=== PATIENT | male | born 1995 ===

== ENCOUNTER 2018-01-27 22:34 | Emergency (ER) | payer MEDICAID ==
[2018-01-27 22:42] VITALS: RESP 18; TEMP 98.3
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
[2018-01-28 02:20] VITALS: BP 110/61; PULSE 63; O2SAT 98
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
== END 2018-01-28 02:30 | disposition home or self-care (01) ==
LOC: H.ER 22:34
DX: S99.912A Unspecified injury of left ankle, initial encounter (principal); Y93.55 Activity, bike riding; Y92.410 Unspecified street and highway as the place of occurrence of the external cause

== ENCOUNTER 2018-02-05 15:01 | Emergency (ER) | payer MEDICAID ==
[2018-02-05 15:27] VITALS: BP 105/67; PULSE 65; RESP 18; TEMP 98.1; O2SAT 99
--- NOTE | 2018-02-05 15:36 | ED PDOC ---
HPI: Trauma/Fall - HPI Time Seen by Provider: 02/05/18 15:28 Chief Complaint (Nursing): Trauma Chief Complaint (Provider): Left wrist injury History Per: Patient, Project Structural Engineer (JOSE Paiz at bedside for kyrgyz translation) Onset/Duration Of Symptoms: Days (x2) Location Of Injury: Left: Wrist Additional Complaint(s): 23 year old right hand dominant male presents to the ED with left wrist pain since yesterday. Patient reports he fell down stairs yesterday and used his left hand to break the fall causing injury to the left wrist. Patient denies taking any medications for pain. No medical attention sought yesterday at time of injury. PMD: Phani Paredes Past Medical History Reviewed: Historical Data, Nursing Documentation, Vital Signs Vital Signs: Last Vital Signs Temp 98.1 F 02/05/18 15:23 Pulse 65 02/05/18 15:23 Resp 18 02/05/18 15:23 BP 105/67 02/05/18 15:23 Pulse Ox 99 02/05/18 15:39 - Medical History PMH: No Chronic Diseases - Surgical History Surgical History: No Surg Hx Other surgeries: Peritonitis - Family History Family History: States: No Known Family Hx - Living Arrangements Living Arrangements: With Family - Social History Current smoker - smoking cessation education provided: No Alcohol: None Drugs: Denies - Home Medications Home Medications: Ambulatory Orders Medication Instructions Recorded Ibuprofen [Motrin Tab] 600 mg PO Q6 #30 tab 01/28/18 Ibuprofen [Motrin] 600 mg PO Q6 PRN #15 tab 02/05/18 - Allergies Allergies/Adverse Reactions: Allergies Allergy/AdvReac Type Severity Reaction Status Date / Time No Known Allergies Allergy Verified 02/05/18 15:23 Review of Systems ROS Statement: Except As Marked, All Systems Reviewed And Found Negative Musculoskeletal: Positive for: Other (Left wrist pain) Physical Exam - Reviewed Nursing Documentation Reviewed: Yes Vital Signs Reviewed: Yes - Physical Exam Appears: Positive for: Well, Non-toxic Skin: Positive for: Normal Color. Negative for: Rash Eye Exam: Positive for: Normal appearance Extremity: Positive for: Normal ROM, Other (Mild tenderness to palmar aspect of the left wrist with full ROM. No snuff box tenderness, full rom of all digits of left hand) Neurologic/Psych: Positive for: Alert, Oriented - ECG O2 Sat by Pulse Oximetry: 99 (RA) Pulse Ox Interpretation: Normal - Other Rad Left wrist x-ray X-Ray: Interpreted by Me, Viewed By Me X-Ray Interpretation: no fx, no dis Medical Decision Making Medical Decision Making: Initial Impression: 23 y/o with left wrist pain Initial Plan: --Ibuprofen 600mg PO --Left wrist X-ray Patient aware of x-ray results, all questions answered. Velcro wrist splint provided. Patient given prescription for Motrin and was referred to orthopedist on-call for follow-up. Scribe Attestation: Documented by Francisco Park acting as a scribe for Vandana GONZALEZ. Provider Scribe Attestation: All medical record entries made by the Scribe were at my direction and personally dictated by me. I have reviewed the chart and agree that the record accurately reflects my personal performance of the history, physical exam, medical decision making, and the department course for this patient. I have also personally directed, reviewed, and agree with the discharge instructions and disposition. Procedures - Splinting Location: left wrist Pre-Made Type: velcro Pre-Proc Neuro Vasc Exam: normal Post-Proc Neuro Vasc Exam: normal Disposition - Clinical Impression Clinical Impression: Wrist sprain - Patient ED Disposition Is Patient to be Admitted: No Counseled Patient/Family Regarding: Studies Performed, Diagnosis, Need For Followup, Rx Given - Disposition Referrals: Jesus Serrano III, MD [Staff Provider] - Disposition: Routine/Home Disposition Time: 16:08 Condition: STABLE Additional Instructions: Ice, rest and elevate affected area. Take prescription meds as directed as needed for pain. Follow-up with orthopedist for any persistent symptoms. Prescriptions: Ibuprofen [Motrin] 600 mg PO Q6 PRN #15 tab PRN Reason: Pain, Moderate (4-7) Instructions: Wrist Sprain (DC) Forms: [facility] [employer] ([place] Citizen) Print Language: CHINESE
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
== END 2018-02-05 16:29 | disposition home or self-care (01) ==
LOC: H.ER 15:01
DX: S63.502A Unspecified sprain of left wrist, initial encounter (principal); W10.9XXA Fall (on) (from) unspecified stairs and steps, initial encounter